=== PATIENT | female | born 1990 | race American Indian/Alaskan Native ===

== ENCOUNTER 2017-08-24 06:00 | Observation (INO) | payer MEDICAID ==
[2017-08-24] MEDS ORDERED: ceFAZolin 2 GM in Premix Bag 1 BAG IV ONE (09:41)
[2017-08-24] MEDS ORDERED: Sodium Chloride 0.9% 10 ML Syringe FLUSH PRN (09:41)
[2017-08-24] MEDS ORDERED: Ondansetron 4 MG/2 ML SDV IVPUSH PRN (09:41)
[2017-08-24] MEDS ORDERED: Citric Acid/Sodium Citrate Solution 30 ML Cup PO ONE (09:41)
[2017-08-24] MEDS ORDERED: Lactated Ringers 1,000 ML IV SCH ×2 (09:45)
== END 2017-08-24 11:52 | disposition home or self-care (01) ==
LOC: DL.OB 06:00
PROVIDERS: ADMIT Family Medicine; ATTEND Family Medicine
DX: O82 Encounter for cesarean delivery without indication (principal); Z3A.36 36 weeks gestation of pregnancy; Z98.891 History of uterine scar from previous surgery; Z87.59 Personal history of other complications of pregnancy, childbirth and the puerperium; Z53.9 Procedure and treatment not carried out, unspecified reason
CPT/HCPCS: 36415; 59025; 85025; 86850; 86900; 86901; J7120

== ENCOUNTER 2017-08-28 05:54 | Inpatient (IN) | payer MEDICAID ==
[2017-08-28] MEDS: Lactated Ringers 1,000 ML IV SCH ×3 (06:15→16:05)
[2017-08-28] MEDS ORDERED: Oxytocin/Normal Saline 60 UNIT/1,000 ML BAG ONE (07:03)
[2017-08-28] MEDS ORDERED: ceFAZolin 2 GM in Premix Bag 1 BAG IV ONE (07:23)
[2017-08-28] MEDS ORDERED: Citric Acid/Sodium Citrate Solution 30 ML Cup PO ONE (07:23)
[2017-08-28] MEDS ORDERED: Sodium Chloride 0.9% 10 ML Syringe FLUSH PRN (07:23)
[2017-08-28] MEDS ORDERED: Lactated Ringers 1,000 ML IV SCH ×3 (07:30→09:15)
--- NOTE | 2017-08-28 07:31 | PCM.HPR ---
H & P Addendum review - H & P Addendum Review Date of Original H & P: 08/22/17 Date Reviewed: 08/28/17 Time Reviewed: 07:30 Patient was Examined: No Changes
[2017-08-28] MEDS ORDERED: Oxytocin/Normal Saline 30 UNIT/500 ML BAG IV SCH (09:00)
[2017-08-28] MEDS ORDERED: diphenhydrAMINE 50 MG/ML SDV IVPUSH PRN (09:03)
[2017-08-28] MEDS ORDERED: Acetaminophen/oxyCODONE 325-5 MG Tab PO PRN (09:03)
[2017-08-28] MEDS ORDERED: Naloxone 2 MG/2 ML Syringe IVPUSH PRN (09:03)
[2017-08-28] MEDS ORDERED: Carboprost Tromethamine 250 MCG/1 ML Amp IM ONE (09:03)
[2017-08-28] MEDS ORDERED: ePHEDrine 50 MG/ML SDV IVPUSH PRN (09:03)
[2017-08-28] MEDS ORDERED: Methylergonovine 0.2 MG/1 ML Amp IM PRN (09:03)
[2017-08-28] MEDS ORDERED: Misoprostol 400 MCG (4 X 100 MCG TAB) RECTAL PRN (09:03)
[2017-08-28] MEDS ORDERED: Acetaminophen 325 MG Tab PO PRN (09:03)
--- NOTE | 2017-08-28 09:03 | PCM.DEL ---
L & D Note - General Info Date of Service: 08/28/17 Mother's Due Date: 08/29/17 - Delivery Note Delivery Outcome: Livebirth Infant Delivery Method: Repeat Delivery Mode: Vacuum Extraction Presentation: Vertex Nuchal Cord: None Anesthesia Type: Spinal Amniotic Fluid Description: Clear Placenta: Intact, Manual Removal Cord: 3 Vessels Estimated Blood Loss: 700 Resuscitation Needed: No [place]: Bulb Syringe Provider: Wendy Crouch Score 1 min: 9 Score 5 min: 9 Delivery Comments (Free Text/Narrative):: Please see procedure note - Patient Data Vitals - Most Recent: Last Vital Signs Temp 36.6 C 08/28/17 06:00 Pulse 92 08/28/17 06:00 Resp 16 08/28/17 06:00 BP 120/80 08/28/17 06:00 Pulse Ox 98 08/28/17 06:00 Weight - Most Recent: 105.233 kg I&O - Last 24 Hours: Intake & Output 08/27/17 08/28/17 08/28/17 22:59 06:59 14:59 Intake Total 50 Balance 50 Lab Results Last 24 Hours: Laboratory Results - last 24 hr 08/28/17 08/28/17 Range/Units 06:05 06:05 WBC 11.0 H (5.0-10.0) 10^3/uL RBC 3.81 L (4.2-5.4) 10^6/uL Hgb 11.3 L D (12.0-16.0) g/dL Hct 34.3 L (37.0-47.0) % MCV 90.0 (80-100) fL MCH 29.7 (27.0-34.0) pg MCHC 32.9 L (33.0-35.0) g/dL Plt Count 192 (150-450) 10^3/uL Blood Type O POSITIVE Gel Antibody Screen Negative Med Orders - Current: Current Medications Lactated Ringer's (Ringers, Lactated) 1,000 mls @ 125 mls/hr IV ASDIRECTED YOGI Last Admin: 08/28/17 06:47 Dose: 125 mls/hr Lactated Ringer's (Ringers, Lactated) 1,000 mls @ 125 mls/hr IV ASDIRECTED YOGI Lactated Ringer's (Ringers, Lactated) 1,000 mls @ 500 mls/hr IV .BOLUS YOGI Sodium Chloride (Saline Flush) 10 ml FLUSH ASDIRECTED PRN PRN Reason: Keep Vein Open Discontinued Medications Citric Acid/Sodium Citrate (Bicitra Solution) 30 ml PO ONETIME ONE Stop: 08/28/17 07:24 Last Admin: 08/28/17 07:41 Dose: 30 ml Oxytocin/Sodium Chloride (Pitocin In Ns 30 Unit/500 Ml) Confirm Administered Dose 60 unit in 1,000 mls @ as directed .ROUTE .STK-MED ONE Stop: 08/28/17 07:04 Cefazolin Sodium/Dextrose 2 gm (/ Premix) 50 mls @ 100 mls/hr IV ONETIME ONE Stop: 08/28/17 07:52 Last Admin: 08/28/17 07:45 Dose: 100 mls/hr - Problem List & Annotations (1) Status post delivery SNOMED Code(s): 615226690 Code(s): Z98.891 - HISTORY OF UTERINE SCAR FROM PREVIOUS SURGERY Status: Acute Current Visit: Yes (2) History of pre-eclampsia SNOMED Code(s): 649849309838517 Code(s): Z87.59 - PERSONAL HISTORY OF COMP OF PREG, CHLDBRTH AND THE PUERP Status: Acute Current Visit: Yes (3) Rubella non-immune status, antepartum SNOMED Code(s): 275927294 Code(s): O99.89 - OTH DISEASES AND CONDITIONS COMPL PREG/CHLDBRTH; Z28.3 - UNDERIMMUNIZATION STATUS Status: Acute Current Visit: Yes (4) STD (sexually transmitted disease) complicating , delivered SNOMED Code(s): 56403301 Code(s): O98.32 - OTH INFECTIONS W SEXL MODE OF TRANSMISS COMP CHILDBIRTH Status: Acute Current Visit: Yes (5) History of delivery SNOMED Code(s): 862897709 Code(s): Z98.891 - HISTORY OF UTERINE SCAR FROM PREVIOUS SURGERY Status: Acute Current Visit: Yes - Problem List Review Problem List Initiated/Reviewed/Updated: Yes - My Orders Last 24 Hours: My Active Orders 08/28/17 06:00 Lactated Ringers [Ringers, Lactated] 1,000 ml IV ASDIRECTED 08/28/17 07:23 Patient Status [ADT] Routine Notify Provider Vital Signs OB [RC] ASDIRECTED Peripheral IV Care [RC] . DIRECTED Procedure Site Prep Instruct [RC] ASDIRECTED RT Incentive Spirometry [RC] ASDIRECTED Vital Signs [RC] PER UNIT ROUTINE Sodium Chloride 0.9% [Saline Flush] 10 ml FLUSH ASDIRECTED PRN Peripheral IV Insertion Adult [OM.PC] Routine Schedule Procedure [COMM] Per Unit Routine Resuscitation Status Routine 08/28/17 07:30 Lactated Ringers [Ringers, Lactated] 1,000 ml IV .BOLUS Lactated Ringers [Ringers, Lactated] 1,000 ml IV ASDIRECTED 08/28/17 Lunch Nothing Per Oral Diet [DIET] - Assessment Assessment:: 27-year-old, now , status post rLTCS @ 39w6d - Plan Plan:: 1. Initiate routine postoperative cares 2. Plans to breast and bottle feed 3. Repeat CBC tomorrow AM 4. Anticipate discharge 08/31/17 Wendy Crouch MD
--- NOTE | 2017-08-28 09:03 | PCM.PRNOTE ---
- Free Text/Narrative Note: Section Operative Report Date of Surgery: 08/28/2017 Surgeon: Wendy Crouch MD Multimedia Authoring Specialist: Jordon Arreola MD Pre-Operative Diagnosis: History of section, declined Post-Operative Diagnosis: Same Procedure Performed: Repeat low transverse section Anesthesia: Spinal EBL: 700 mL IVF: 1900 mL Drains: Berrios catheter with 40 mL of urine output (patient urinated immediately prior to surgery) Specimens: None Complications: None apparent Findings: Normal uterus, tubes, and ovaries. Indication and Consent: The patient presented to floor today for scheduled at term due to hx of prior and desire for elective repeat . The patient understood that the risks of section include, but are not limited to, visceral or vascular injury, infection, blood loss and need for blood transfusion, prolonged hospitalization, and reoperation. The patient again stated understanding and desired to proceed. All questions were answered. Procedure in Detail: The patient was taken to the operating room where spinal anesthesia was placed and found to be adequate. 2 grams of cefazolin (Ancef) were given for infection prophylaxis. She was then prepped and draped in routine fashion in dorsal supine position with a left morrissey tilt. Berrios catheter and pneumoboots were placed. A Pfannenstiel skin incision was made with a scalpel. The incision was carried down to the fascia sharply. The fascia was incised and extended laterally. The superior aspect of the fascia was grasped with Weston clamps; the underlying rectus muscle and pyramidalis was dissected off with sharp and blunt technique. In a similar fashion, the inferior aspect of the fascia was elevated with Weston clamps and the rectus muscle was dissected off. Hemostasis was achieved with the Bovie. The rectus musculature was in the midline down to the level of the pubic symphysis. Pre-peritoneal fatty tissue was bluntly dissected to expose the peritoneum. The peritoneum was found to be free of adherent bowel or bladder tissue and entered bluntly. The peritoneal opening was then extended superiorly and inferiorly to the bladder reflection with good visualization of the bladder. The Henry retractor was inserted. Intraabdominal survey revealed scant, clear peritoneal fluid and thinned-out lower uterine segment. The vesicouterine peritoneum was opened with a pickup and mets, and the bladder flap was developed. The bladder blade was repositioned to keep the bladder out of the operative field. The lower uterine segment was incised with a scalpel. The amniotic sac was ruptured with an Allis clamp and clear fluid was noted. The uterine incision was extended bluntly with lateral and upward traction. The fetus was in cephalic position. The head was elevated out of the maternal pelvis with special attention paid to avoid using the uterine incision as a fulcrum. A Kiwi soft cup vacuum was used to remove the head from the uterus. One gentle pull was needed to deliver the head. Gentle fundal pressure was applied once the head was brought into the incision. The was delivered with minimal difficulty. Bulb suctioning of the infant's nose and mouth was not performed on the operative field. Cord blood was collected.The cord was clamped and cut in standard fashion, and the infant was handed over to the awaiting nursery staff. IV oxytocin was initiated to facilitate uterine contractions. The placenta was delivered intact with manual message of the uterine fundus along with gentle cord traction. The uterus was then exteriorized. The inside of the uterus was gently wiped with a lap sponge to assure complete removal of remaining products of conception. The uterine incision was closed with 0 - Vicryl suture in a running locked fashion. A second imbricating layer of 0- Monocryl was also placed. The incision was inspected and hemostasis was achieved. The ovaries and tubes were visualized and found to be normal. The blood clots and fluid were wiped out of the abdomen and pelvis with moist laparotomy sponges. The uterine incision was re-inspected along with all other incised surfaces and good hemostasis was confirmed. The Henry retractor was removed. The incision was re-inspected and found to be hemostatic. Peritoneum was close with 2-0 Vicryl. The fascia was then closed with 2-0 looped PDS suture with care not to include any underlying abdominal contents. The sub-cutaneous layer was reapproximated with suture. The skin was closed with 4-0 Vicryl suture on a Jose needle in a subcuticular fashion. Sponge and instrument counts were reported as correct times two. Patient tolerated procedure well and was taken to PACU in stable condition. Wendy Crouch MD
[2017-08-28] MEDS: Ondansetron 4 MG/2 ML SDV IV PRN ×2 (12:08→17:02)
[2017-08-28] MEDS ORDERED: Promethazine 25 MG/ML SDV IM PRN (12:51)
[2017-08-28] MEDS: Ketorolac 30 MG/ML SDV IVPUSH SCH ×2 (14:10→20:06)
[2017-08-28] MEDS ORDERED: Ketorolac 30 MG/ML SDV IVPUSH ONE (14:15)
[2017-08-28] MEDS ORDERED: Dexamethasone 4 MG/ML SDV IV ONE (14:15)
[2017-08-28] MEDS ORDERED: Ondansetron 4 MG/2 ML SDV IV ONE (14:15)
[2017-08-28] MEDS ORDERED: Lactated Ringers 1,000 ML IV ONE (14:15)
[2017-08-28] MEDS ORDERED: Morphine PF 1 MG/ML Amp ONE (14:15)
[2017-08-28] MEDS ORDERED: ePHEDrine 50 MG/ML SDV IV ONE (14:15)
[2017-08-28] MEDS ORDERED: Calcium Carbonate 500 MG Tab.Chew PO PRN (15:12)
[2017-08-29] MEDS: Lactated Ringers 1,000 ML IV SCH (00:07)
[2017-08-29] MEDS: Ketorolac 30 MG/ML SDV IVPUSH SCH (02:07)
[2017-08-29] MEDS: Simethicone 80 MG Tab.Chew PO PRN ×3 (08:14→17:53)
[2017-08-29] MEDS: Docusate Sodium 100 MG Cap PO PRN ×2 (08:14→21:29)
[2017-08-29] MEDS: Prenatal Multivitamin with Calcium/Folic Acid/Iron Tab PO SCH (08:31)
[2017-08-29] MEDS: Ibuprofen 800 MG Tab PO PRN ×2 (09:58→17:53)
[2017-08-29] MEDS: Acetaminophen/oxyCODONE 325-5 MG Tab PO PRN ×3 (12:16→21:29)
--- NOTE | 2017-08-29 12:17 | PCM.PNPP ---
- General Info Date of Service: 08/29/17 Subjective Update: 27-year-old POD#1 status post repeat section. Patient had some significant heartburn after surgery which improved with Tums. Her baugh is still in place. She has not gotten out of bed much. She was eating breakfast when I arrived in the room, which is the first thing she has eaten except for crackers and water. She has had some intermittent mild dizziness. No fever or chills. No headaches. Functional Status: Reports: Pain Controlled. Denies: New Symptoms - Review of Systems General: Reports: No Symptoms HEENT: Reports: No Symptoms Pulmonary: Reports: No Symptoms Cardiovascular: Reports: No Symptoms Gastrointestinal: Reports: No Symptoms Genitourinary: Reports: No Symptoms Musculoskeletal: Reports: No Symptoms Skin: Reports: No Symptoms Neurological: Reports: No Symptoms Psychiatric: Reports: No Symptoms - General Info Date of Service: 08/29/17 - Patient Data Vital Signs - Most Recent: Last Vital Signs Temp 36.2 C 08/29/17 11:49 Pulse 65 08/29/17 11:49 Resp 16 08/29/17 11:49 BP 107/64 08/29/17 11:49 Pulse Ox 98 08/29/17 11:49 Weight - Most Recent: 105.233 kg I&O - Last 24 Hours: Intake & Output 08/28/17 08/29/17 08/29/17 22:59 06:59 14:59 Intake Total 78 Output Total 425 700 250 Balance -347 700 -250 Lab Results - Last 24 Hours: Laboratory Results - last 24 hr 08/29/17 Range/Units 06:12 WBC 10.2 H (5.0-10.0) 10^3/uL RBC 2.86 L (4.2-5.4) 10^6/uL Hgb 8.3 L D (12.0-16.0) g/dL Hct 25.7 L (37.0-47.0) % MCV 89.9 (80-100) fL MCH 29.0 (27.0-34.0) pg MCHC 32.3 L (33.0-35.0) g/dL Plt Count 180 (150-450) 10^3/uL Med Orders - Current: Current Medications Acetaminophen (Tylenol) 650 mg PO Q6H PRN PRN Reason: mild pain or fever Calcium Carbonate/Glycine (Tums) 500 mg PO Q2H PRN PRN Reason: Heartburn Last Admin: 08/28/17 16:06 Dose: 500 mg Diphenhydramine HCl (Benadryl) 25 mg IVPUSH Q6H PRN PRN Reason: Itching or Nausea Docusate Sodium (Colace) 100 mg PO Q12H PRN PRN Reason: Constipation Last Admin: 08/29/17 08:14 Dose: 100 mg Ephedrine Sulfate (Ephedrine Sulfate) 5 mg IVPUSH SEECOMMENT PRN PRN Reason: Other Ferrous Sulfate (Ferrous Sulfate) 325 mg PO BIDMEALS YOGI Lactated Ringer's (Ringers, Lactated) 1,000 mls @ 125 mls/hr IV ASDIRECTED YOGI Last Admin: 08/29/17 00:07 Dose: 125 mls/hr Lactated Ringer's (Ringers, Lactated) 1,000 mls @ 125 mls/hr IV ASDIRECTED YOGI Lactated Ringer's (Ringers, Lactated) 1,000 mls @ 500 mls/hr IV .BOLUS YOGI Oxytocin/Sodium Chloride (Pitocin In Ns 30 Unit/500 Ml) 30 unit in 500 mls @ 2 mls/hr IV TITRATE YOGI; 2 MUNITS/MIN PRN Reason: Protocol Last Titration: 08/28/17 11:25 Dose: 0 mls/hr Lactated Ringer's (Ringers, Lactated) 1,000 mls @ 125 mls/hr IV ASDIRECTED YOGI Ibuprofen (Motrin) 800 mg PO Q8H PRN PRN Reason: mild pain or fever Last Admin: 08/29/17 09:58 Dose: 800 mg Methylergonovine Maleate (Methergine) 0.2 mg IM ONETIME PRN PRN Reason: Excessive Vaginal Bleeding Misoprostol (Cytotec) 800 mcg RECTAL ASDIRECTED PRN PRN Reason: Excessive bleeding Naloxone HCl (Narcan) 0.1 mg IVPUSH SEECOMMENT PRN PRN Reason: Respiratory Depression Ondansetron HCl (Zofran) 4 mg IV Q4H PRN PRN Reason: Nausea/Vomiting Last Admin: 08/28/17 17:02 Dose: 4 mg Oxycodone/Acetaminophen (Percocet 325-5 Mg) 1 tab PO Q4H PRN PRN Reason: Pain (moderate 4-6) Last Admin: 08/29/17 08:14 Dose: 1 tab Oxycodone/Acetaminophen (Percocet 325-5 Mg) 2 tab PO Q4H PRN PRN Reason: Pain (moderate 4-6) Prenat Multivit/[place]/Iron/Folic Ac ( Plus Iron) 1 each PO WITHBREAKFAST YOGI Last Admin: 08/29/17 08:31 Dose: 1 each Promethazine HCl (Phenergan) 12.5 mg IM ONETIME PRN PRN Reason: Nausea Simethicone (Simethicone) 80 mg PO Q4H PRN PRN Reason: Gas Last Admin: 08/29/17 08:14 Dose: 80 mg Sodium Chloride (Saline Flush) 10 ml FLUSH ASDIRECTED PRN PRN Reason: Keep Vein Open Discontinued Medications Carboprost Tromethamine (Hemabate Ds) 250 mcg IM ONETIME ONE Stop: 08/28/17 09:04 Last Admin: 08/28/17 11:41 Dose: Not Given Citric Acid/Sodium Citrate (Bicitra Solution) 30 ml PO ONETIME ONE Stop: 08/28/17 07:24 Last Admin: 08/28/17 07:41 Dose: 30 ml Dexamethasone (Dexamethasone) 8 mg IV .STK-MED ONE Stop: 08/28/17 14:16 Ephedrine Sulfate (Ephedrine Sulfate) 45 mg IV .STK-MED ONE Stop: 08/28/17 14:16 Oxytocin/Sodium Chloride (Pitocin In Ns 30 Unit/500 Ml) Confirm Administered Dose 60 unit in 1,000 mls @ as directed .ROUTE .STK-MED ONE Stop: 08/28/17 07:04 Cefazolin Sodium/Dextrose 2 gm (/ Premix) 50 mls @ 100 mls/hr IV ONETIME ONE Stop: 08/28/17 07:52 Last Admin: 08/28/17 07:45 Dose: 100 mls/hr Lactated Ringer's (Ringers, Lactated) 1,000 mls @ as directed IV .STK-MED ONE Stop: 08/28/17 14:16 Ketorolac Tromethamine (Toradol) 15 mg IVPUSH Q6H YOGI Stop: 08/29/17 02:01 Last Admin: 08/29/17 02:07 Dose: 15 mg Ketorolac Tromethamine (Toradol) 30 mg IVPUSH .STK-MED ONE Stop: 08/28/17 14:16 Morphine Sulfate (Duramorph Pf) 0.2 mg .XX .STK-MED ONE Stop: 08/28/17 14:16 Ondansetron HCl (Zofran) 4 mg IV .STK-MED ONE Stop: 08/28/17 14:16 - Infant Interaction Disposition, : to Nursery Feeding: Bottle Fed Support Person: - Recovery Exam Fundal Tone: Firm Fundal Level: 2 Fingerbreadths Below Umbilicus Fundal Placement: Midline Lochia Amount: Small Lochia Color: Rubra/Red Perineum Description: Intact, Minimal Bruising/Swelling Bladder Status: Indwelling Catheter in Place Urinary Elimination: Indwelling Catheter - Exam General: Alert, Oriented Lungs: Clear to Auscultation Cardiovascular: Regular Rate, Regular Rhythm, No Murmurs Extremities: No Pedal Edema Skin: Warm, Dry, Intact Wound/Incisions: Dressing Dry and Intact - Problem List & Annotations (1) Status post delivery SNOMED Code(s): 928892643 Code(s): Z98.891 - HISTORY OF UTERINE SCAR FROM PREVIOUS SURGERY Status: Acute Current Visit: Yes (2) History of pre-eclampsia SNOMED Code(s): 791660251635715 Code(s): Z87.59 - PERSONAL HISTORY OF COMP OF PREG, CHLDBRTH AND THE PUERP Status: Acute Current Visit: Yes (3) Rubella non-immune status, antepartum SNOMED Code(s): 837249466 Code(s): O99.89 - OTH DISEASES AND CONDITIONS COMPL PREG/CHLDBRTH; Z28.3 - UNDERIMMUNIZATION STATUS Status: Acute Current Visit: Yes (4) STD (sexually transmitted disease) complicating , delivered SNOMED Code(s): 73587348 Code(s): O98.32 - OTH INFECTIONS W SEXL MODE OF TRANSMISS COMP CHILDBIRTH Status: Acute Current Visit: Yes (5) History of delivery SNOMED Code(s): 390779580 Code(s): Z98.891 - HISTORY OF UTERINE SCAR FROM PREVIOUS SURGERY Status: Acute Current Visit: Yes - Problem List Review Problem List Initiated/Reviewed/Updated: Yes - My Orders Last 24 Hours: My Active Orders 08/28/17 15:12 Calcium Carbonate [Tums] 500 mg PO Q2H PRN 08/28/17 Dinner Regular Diet [DIET] 08/29/17 09:00 Vit with Ca/FA/Iron [ Plus Iron] 1 each PO WITHBREAKFAST 08/29/17 10:00 Ibuprofen [Motrin] 800 mg PO Q8H PRN 08/29/17 18:00 Ferrous Sulfate 325 mg PO BIDMEALS - Assessment Assessment:: 27-year-old, now , POD#1 status post rLTCS @ 39w6d - Plan Plan:: 1. Continue routine postoperative cares 2. Bottle feeding 3. Hemoglobin decreased to 8.3. Will start oral iron BID. 4. Anticipate discharge 08/31/17 Wendy Crouch MD
[2017-08-29] MEDS: Ferrous Sulfate 325 MG Tab PO SCH (17:23)
[2017-08-30] MEDS: Simethicone 80 MG Tab.Chew PO PRN ×2 (01:34→20:20)
[2017-08-30] MEDS: Ibuprofen 800 MG Tab PO PRN ×3 (01:35→18:09)
[2017-08-30] MEDS: Acetaminophen/oxyCODONE 325-5 MG Tab PO PRN ×6 (01:35→21:57)
[2017-08-30] MEDS: Prenatal Multivitamin with Calcium/Folic Acid/Iron Tab PO SCH (09:41)
[2017-08-30] MEDS: Docusate Sodium 100 MG Cap PO PRN ×2 (09:42→20:21)
[2017-08-30] MEDS: Ferrous Sulfate 325 MG Tab PO SCH ×2 (09:42→18:09)
--- NOTE | 2017-08-30 10:26 | PCM.PNPP ---
- General Info Date of Service: 08/30/17 Subjective Update: 27-year-old POD#2 status post repeat section. Patient had some significant heartburn after surgery which improved with Tums. Berrios has been removed, and she is voiding without difficulty. She is passing gas. Dizziness has improved. She is tolerating a general diet. No fever or chills. No headaches. Functional Status: Reports: Pain Controlled, Tolerating Diet, Ambulating, Urinating. Denies: New Symptoms - Review of Systems General: Reports: No Symptoms HEENT: Reports: No Symptoms Pulmonary: Reports: No Symptoms Cardiovascular: Reports: No Symptoms Gastrointestinal: Reports: No Symptoms Genitourinary: Reports: No Symptoms Musculoskeletal: Reports: No Symptoms Skin: Reports: No Symptoms - Patient Data Vital Signs - Most Recent: Last Vital Signs Temp 36.9 C 08/30/17 01:45 Pulse 70 08/30/17 01:45 Resp 16 08/30/17 01:45 BP 113/74 08/30/17 01:45 Pulse Ox 99 08/30/17 01:45 Weight - Most Recent: 105.233 kg I&O - Last 24 Hours: Intake & Output 08/29/17 08/30/17 08/30/17 22:59 06:59 14:59 Output Total 400 Balance -400 Med Orders - Current: Current Medications Acetaminophen (Tylenol) 650 mg PO Q6H PRN PRN Reason: mild pain or fever Calcium Carbonate/Glycine (Tums) 500 mg PO Q2H PRN PRN Reason: Heartburn Last Admin: 08/28/17 16:06 Dose: 500 mg Diphenhydramine HCl (Benadryl) 25 mg IVPUSH Q6H PRN PRN Reason: Itching or Nausea Docusate Sodium (Colace) 100 mg PO Q12H PRN PRN Reason: Constipation Last Admin: 08/30/17 09:42 Dose: 100 mg Ephedrine Sulfate (Ephedrine Sulfate) 5 mg IVPUSH SEECOMMENT PRN PRN Reason: Other Ferrous Sulfate (Ferrous Sulfate) 325 mg PO BIDMEALS [facility] Last Admin: 08/30/17 09:42 Dose: 325 mg Lactated Ringer's (Ringers, Lactated) 1,000 mls @ 125 mls/hr IV ASDIRECTED [facility] Last Admin: 08/29/17 00:07 Dose: 125 mls/hr Lactated Ringer's (Ringers, Lactated) 1,000 mls @ 125 mls/hr IV ASDIRECTED YOGI Lactated Ringer's (Ringers, Lactated) 1,000 mls @ 500 mls/hr IV .BOLUS YOGI Oxytocin/Sodium Chloride (Pitocin In Ns 30 Unit/500 Ml) 30 unit in 500 mls @ 2 mls/hr IV TITRATE YOGI; 2 MUNITS/MIN PRN Reason: Protocol Last Titration: 08/28/17 11:25 Dose: 0 mls/hr Lactated Ringer's (Ringers, Lactated) 1,000 mls @ 125 mls/hr IV ASDIRECTED YOGI Ibuprofen (Motrin) 800 mg PO Q8H PRN PRN Reason: mild pain or fever Last Admin: 08/30/17 09:42 Dose: 800 mg Methylergonovine Maleate (Methergine) 0.2 mg IM ONETIME PRN PRN Reason: Excessive Vaginal Bleeding Misoprostol (Cytotec) 800 mcg RECTAL ASDIRECTED PRN PRN Reason: Excessive bleeding Naloxone HCl (Narcan) 0.1 mg IVPUSH SEECOMMENT PRN PRN Reason: Respiratory Depression Ondansetron HCl (Zofran) 4 mg IV Q4H PRN PRN Reason: Nausea/Vomiting Last Admin: 08/28/17 17:02 Dose: 4 mg Oxycodone/Acetaminophen (Percocet 325-5 Mg) 1 tab PO Q4H PRN PRN Reason: Pain (moderate 4-6) Last Admin: 08/29/17 08:14 Dose: 1 tab Oxycodone/Acetaminophen (Percocet 325-5 Mg) 2 tab PO Q4H PRN PRN Reason: Pain (moderate 4-6) Last Admin: 08/30/17 09:42 Dose: 2 tab Prenat Multivit/[place]/Iron/Folic Ac ( Plus Iron) 1 each PO WITHBREAKFAST [facility] Last Admin: 08/30/17 09:41 Dose: 1 each Promethazine HCl (Phenergan) 12.5 mg IM ONETIME PRN PRN Reason: Nausea Simethicone (Simethicone) 80 mg PO Q4H PRN PRN Reason: Gas Last Admin: 08/30/17 01:34 Dose: 80 mg Sodium Chloride (Saline Flush) 10 ml FLUSH ASDIRECTED PRN PRN Reason: Keep Vein Open Discontinued Medications Carboprost Tromethamine (Hemabate Ds) 250 mcg IM ONETIME ONE Stop: 08/28/17 09:04 Last Admin: 08/28/17 11:41 Dose: Not Given Citric Acid/Sodium Citrate (Bicitra Solution) 30 ml PO ONETIME ONE Stop: 08/28/17 07:24 Last Admin: 08/28/17 07:41 Dose: 30 ml Dexamethasone (Dexamethasone) 8 mg IV .STK-MED ONE Stop: 08/28/17 14:16 Ephedrine Sulfate (Ephedrine Sulfate) 45 mg IV .STK-MED ONE Stop: 08/28/17 14:16 Oxytocin/Sodium Chloride (Pitocin In Ns 30 Unit/500 Ml) Confirm Administered Dose 60 unit in 1,000 mls @ as directed .ROUTE .STK-MED ONE Stop: 08/28/17 07:04 Cefazolin Sodium/Dextrose 2 gm (/ Premix) 50 mls @ 100 mls/hr IV ONETIME ONE Stop: 08/28/17 07:52 Last Admin: 08/28/17 07:45 Dose: 100 mls/hr Lactated Ringer's (Ringers, Lactated) 1,000 mls @ as directed IV .STK-MED ONE Stop: 08/28/17 14:16 Ketorolac Tromethamine (Toradol) 15 mg IVPUSH Q6H YOGI Stop: 08/29/17 02:01 Last Admin: 08/29/17 02:07 Dose: 15 mg Ketorolac Tromethamine (Toradol) 30 mg IVPUSH .STK-MED ONE Stop: 08/28/17 14:16 Morphine Sulfate (Duramorph Pf) 0.2 mg .XX .STK-MED ONE Stop: 08/28/17 14:16 Ondansetron HCl (Zofran) 4 mg IV .STK-MED ONE Stop: 08/28/17 14:16 - Infant Interaction Disposition, : [place] in Room with Family Interaction: Holding Infant Feeding: Bottle Fed Support Person: - Recovery Exam Fundal Tone: Firm Fundal Level: Unable to Assess Fundal Placement: Midline Lochia Amount: Moderate Lochia Color: Rubra/Red Perineum Description: Intact, Minimal Bruising/Swelling Bladder Status: Voiding Urinary Elimination: Indwelling Catheter - Exam General: Alert, Oriented Lungs: Clear to Auscultation, Normal Respiratory Effort Cardiovascular: Regular Rate, Regular Rhythm, No Murmurs Extremities: Pedal Edema (Trace bilaterally) Skin: Warm, Dry, Intact Wound/Incisions: Healing Well, No Drainage. No: Erythema - Problem List & Annotations (1) Status post delivery SNOMED Code(s): 616582218 Code(s): Z98.891 - HISTORY OF UTERINE SCAR FROM PREVIOUS SURGERY Status: Acute Current Visit: Yes (2) History of pre-eclampsia SNOMED Code(s): 239179964551186 Code(s): Z87.59 - PERSONAL HISTORY OF COMP OF PREG, CHLDBRTH AND THE PUERP Status: Acute Current Visit: Yes (3) Rubella non-immune status, antepartum SNOMED Code(s): 622544338 Code(s): O99.89 - OTH DISEASES AND CONDITIONS COMPL PREG/CHLDBRTH; Z28.3 - UNDERIMMUNIZATION STATUS Status: Acute Current Visit: Yes (4) STD (sexually transmitted disease) complicating , delivered SNOMED Code(s): 84070555 Code(s): O98.32 - OTH INFECTIONS W SEXL MODE OF TRANSMISS COMP CHILDBIRTH Status: Acute Current Visit: Yes (5) History of delivery SNOMED Code(s): 336679799 Code(s): Z98.891 - HISTORY OF UTERINE SCAR FROM PREVIOUS SURGERY Status: Acute Current Visit: Yes (6) Acute blood loss anemia SNOMED Code(s): 681359874 Code(s): D62 - ACUTE POSTHEMORRHAGIC ANEMIA Status: Acute Current Visit: Yes - Problem List Review Problem List Initiated/Reviewed/Updated: Yes - My Orders Last 24 Hours: My Active Orders 08/29/17 10:00 Ibuprofen [Motrin] 800 mg PO Q8H PRN 08/29/17 18:00 Ferrous Sulfate 325 mg PO BIDMEALS - Assessment Assessment:: 27-year-old, now , POD#2 status post rLTCS @ 39w6d - Plan Plan:: 1. Continue routine postoperative cares 2. Bottle feeding 3. Continue oral iron BID 4. Anticipate discharge 08/31/17 Wendy Crouch MD
[2017-08-31] MEDS: Ibuprofen 800 MG Tab PO PRN ×2 (01:35→10:02)
[2017-08-31] MEDS: Acetaminophen/oxyCODONE 325-5 MG Tab PO PRN ×3 (01:35→12:27)
[2017-08-31] MEDS: Prenatal Multivitamin with Calcium/Folic Acid/Iron Tab PO SCH (10:01)
[2017-08-31] MEDS: Ferrous Sulfate 325 MG Tab PO SCH (10:01)
[2017-08-31] MEDS: Simethicone 80 MG Tab.Chew PO PRN (10:03)
[2017-08-31] MEDS: Docusate Sodium 100 MG Cap PO PRN (10:03)
--- NOTE | 2017-08-31 12:43 | PCM.DCSUM1 ---
Discharge Summary - Hospital Course Free Text/Narrative:: 27-year-old POD#3 status post rLTCS at 39w6d - Discharge Data Discharge Date: 08/31/17 Discharge Disposition: Home, Self-Care 01 Condition: Good - Discharge Diagnosis/Problem(s) (1) Status post delivery SNOMED Code(s): 436712438 ICD Code: Z98.891 - HISTORY OF UTERINE SCAR FROM PREVIOUS SURGERY Status: Acute Current Visit: Yes (2) History of pre-eclampsia SNOMED Code(s): 887429426805138 ICD Code: Z87.59 - PERSONAL HISTORY OF COMP OF PREG, CHLDBRTH AND THE PUERP Status: Acute Current Visit: Yes (3) Rubella non-immune status, antepartum SNOMED Code(s): 664536060 ICD Code: O99.89 - OTH DISEASES AND CONDITIONS COMPL PREG/CHLDBRTH; Z28.3 - UNDERIMMUNIZATION STATUS Status: Acute Current Visit: Yes (4) STD (sexually transmitted disease) complicating , delivered SNOMED Code(s): 33241129 ICD Code: O98.32 - OTH INFECTIONS W SEXL MODE OF TRANSMISS COMP CHILDBIRTH Status: Acute Current Visit: Yes (5) History of delivery SNOMED Code(s): 117175485 ICD Code: Z98.891 - HISTORY OF UTERINE SCAR FROM PREVIOUS SURGERY Status: Acute Current Visit: Yes (6) Acute blood loss anemia SNOMED Code(s): 966149504 ICD Code: D62 - ACUTE POSTHEMORRHAGIC ANEMIA Status: Acute Current Visit : Yes - Patient Summary/Data Operative Procedure(s) Performed: Repeat low transverse section Complications: None Consults: None Labs Pending at D/C: None Recommended Follow-up Testing/Procedures: None Planned Operative Procedure(s) after DC: None Hospital Course: Unremarkable. (Please see subjective section) - Patient Instructions Diet: Usual Diet as Tolerated Activity: As Tolerated, No Lifting Over 20 Pounds Driving: Do Not Drive (while taking pain medications) Showering/Bathing: May Shower Wound/Incision Care: Keep Operative Site/Wound Site Clean and Dry Notify Provider of: Fever, Increased Pain, Swelling and Redness, Drainage, Nausea and/or Vomiting - Discharge Plan Home Medications: Home Meds Albuterol [IJD: Albuterol HFA] 90 mcg INH Q4HR PRN 08/24/17 [History] Albuterol [Proventil HFA] 2 puff INH Q4HR PRN 08/24/17 [History] Montelukast Sodium [Singulair] 10 mg PO DAILY 08/24/17 [History] PNV95/Ferrous Fumarate/FA [ Tablet] 1 tab PO DAILY 08/24/17 [History] Acetaminophen [Tylenol] 650 mg PO Q6H PRN tablet 08/31/17 [Rx] Calcium Carbonate [Tums] 500 mg PO Q2H PRN tab.chew 08/31/17 [Rx] Docusate Sodium [Colace] 100 mg PO Q12H PRN cap 08/31/17 [Rx] Ferrous Sulfate 325 mg PO BIDMEALS tablet 08/31/17 [Rx] Ibuprofen [IJD: Ibuprofen] 800 mg PO Q8H PRN tablet 08/31/17 [Rx] Referrals: Wendy Crouch MD [Primary Care Provider] - (6-8 weeks for visit) - Discharge Summary/Plan Comment DC Time >30 min.: No Discharge Summary/Plan Comment: Patient discharged home today. Her baby is staying another day for hyperbilirubinemia so she will be rooming in with him. No concerns per patient or nursing. Reasons to return for evaluation or present to the ED were reviewed with the patient, and all questions were answered. Wendy Crouch MD - General Info Date of Service: 08/31/17 Subjective Update: 27-year-old POD#3 status post repeat section. Patient had some significant heartburn after surgery which improved with Tums. Berrios has been removed, and she is voiding without difficulty. She is passing gas. Dizziness has improved. She is tolerating a general diet. No fever or chills. No headaches. No new symptoms over the past 24 hours. Functional Status: Reports: Pain Controlled, Tolerating Diet, Ambulating, Urinating. Denies: New Symptoms - Review of Systems General: Reports: No Symptoms HEENT: Reports: No Symptoms Pulmonary: Reports: No Symptoms Cardiovascular: Reports: No Symptoms Gastrointestinal: Reports: No Symptoms Genitourinary: Reports: No Symptoms Musculoskeletal: Reports: No Symptoms Skin: Reports: No Symptoms - Patient Data Vitals - Most Recent: Last Vital Signs Temp 36.6 C 01/11/18 12:00 Pulse 63 08/31/17 12:00 Resp 16 08/31/17 12:00 BP 135/89 08/31/17 12:00 Pulse Ox 100 08/31/17 12:00 Weight - Most Recent: 105.233 kg Med Orders - Current: Current Medications Acetaminophen (Tylenol) 650 mg PO Q6H PRN PRN Reason: mild pain or fever Calcium Carbonate/Glycine (Tums) 500 mg PO Q2H PRN PRN Reason: Heartburn Last Admin: 08/28/17 16:06 Dose: 500 mg Diphenhydramine HCl (Benadryl) 25 mg IVPUSH Q6H PRN PRN Reason: Itching or Nausea Docusate Sodium (Colace) 100 mg PO Q12H PRN PRN Reason: Constipation Last Admin: 08/31/17 10:03 Dose: 100 mg Ephedrine Sulfate (Ephedrine Sulfate) 5 mg IVPUSH SEECOMMENT PRN PRN Reason: Other Ferrous Sulfate (Ferrous Sulfate) 325 mg PO BIDMEALS YOGI Last Admin: 08/31/17 10:01 Dose: 325 mg Lactated Ringer's (Ringers, Lactated) 1,000 mls @ 125 mls/hr IV ASDIRECTED YOGI Last Admin: 08/29/17 00:07 Dose: 125 mls/hr Lactated Ringer's (Ringers, Lactated) 1,000 mls @ 125 mls/hr IV ASDIRECTED YOGI Lactated Ringer's (Ringers, Lactated) 1,000 mls @ 500 mls/hr IV .BOLUS YOGI Oxytocin/Sodium Chloride (Pitocin In Ns 30 Unit/500 Ml) 30 unit in 500 mls @ 2 mls/hr IV TITRATE YOGI; 2 MUNITS/MIN PRN Reason: Protocol Last Titration: 08/28/17 11:25 Dose: 0 mls/hr Lactated Ringer's (Ringers, Lactated) 1,000 mls @ 125 mls/hr IV ASDIRECTED YOGI Ibuprofen (Motrin) 800 mg PO Q8H PRN PRN Reason: mild pain or fever Last Admin: 08/31/17 10:02 Dose: 800 mg Methylergonovine Maleate (Methergine) 0.2 mg IM ONETIME PRN PRN Reason: Excessive Vaginal Bleeding Misoprostol (Cytotec) 800 mcg RECTAL ASDIRECTED PRN PRN Reason: Excessive bleeding Naloxone HCl (Narcan) 0.1 mg IVPUSH SEECOMMENT PRN PRN Reason: Respiratory Depression Ondansetron HCl (Zofran) 4 mg IV Q4H PRN PRN Reason: Nausea/Vomiting Last Admin: 08/28/17 17:02 Dose: 4 mg Oxycodone/Acetaminophen (Percocet 325-5 Mg) 1 tab PO Q4H PRN PRN Reason: Pain (moderate 4-6) Last Admin: 08/29/17 08:14 Dose: 1 tab Oxycodone/Acetaminophen (Percocet 325-5 Mg) 2 tab PO Q4H PRN PRN Reason: Pain (moderate 4-6) Last Admin: 08/31/17 12:27 Dose: 2 tab Prenat Multivit/[place]/Iron/Folic Ac ( Plus Iron) 1 each PO WITHBREAKFAST YOGI Last Admin: 08/31/17 10:01 Dose: 1 each Promethazine HCl (Phenergan) 12.5 mg IM ONETIME PRN PRN Reason: Nausea Simethicone (Simethicone) 80 mg PO Q4H PRN PRN Reason: Gas Last Admin: 08/31/17 10:03 Dose: 80 mg Sodium Chloride (Saline Flush) 10 ml FLUSH ASDIRECTED PRN PRN Reason: Keep Vein Open Discontinued Medications Carboprost Tromethamine (Hemabate Ds) 250 mcg IM ONETIME ONE Stop: 08/28/17 09:04 Last Admin: 08/28/17 11:41 Dose: Not Given Citric Acid/Sodium Citrate (Bicitra Solution) 30 ml PO ONETIME ONE Stop: 08/28/17 07:24 Last Admin: 08/28/17 07:41 Dose: 30 ml Dexamethasone (Dexamethasone) 8 mg IV .STK-MED ONE Stop: 08/28/17 14:16 Ephedrine Sulfate (Ephedrine Sulfate) 45 mg IV .STK-MED ONE Stop: 08/28/17 14:16 Oxytocin/Sodium Chloride (Pitocin In Ns 30 Unit/500 Ml) Confirm Administered Dose 60 unit in 1,000 mls @ as directed .ROUTE .STK-MED ONE Stop: 08/28/17 07:04 Cefazolin Sodium/Dextrose 2 gm (/ Premix) 50 mls @ 100 mls/hr IV ONETIME ONE Stop: 08/28/17 07:52 Last Admin: 08/28/17 07:45 Dose: 100 mls/hr Lactated Ringer's (Ringers, Lactated) 1,000 mls @ as directed IV .STK-MED ONE Stop: 08/28/17 14:16 Ketorolac Tromethamine (Toradol) 15 mg IVPUSH Q6H YOGI Stop: 08/29/17 02:01 Last Admin: 08/29/17 02:07 Dose: 15 mg Ketorolac Tromethamine (Toradol) 30 mg IVPUSH .STK-MED ONE Stop: 08/28/17 14:16 Morphine Sulfate (Duramorph Pf) 0.2 mg .XX .STK-MED ONE Stop: 08/28/17 14:16 Ondansetron HCl (Zofran) 4 mg IV .STK-MED ONE Stop: 08/28/17 14:16 - Exam General: Reports: Alert, Oriented HEENT: Reports: Pupils Equal Lungs: Reports: Clear to Auscultation, Normal Respiratory Effort Cardiovascular: Reports: Regular Rate, Regular Rhythm, No Murmurs GI/Abdominal Exam: Soft, Non-Tender Extremities: Pedal Edema (Trace bilaterally) Skin: Reports: Warm, Dry, Intact Wound/Incisions: Reports: Healing Well, No Drainage. Denies: Erythema *Q Meaningful Use (DIS) - VTE *Q VTE Criteria *Q: - Stroke *Q Stroke Criteria *Q: - AMI *Q AMI Criteria *Q:
[2017-08-31] MEDS ORDERED: Measles, Mumps & Rubella Vaccine 0.5 ML SDV SUBCUT ONE (15:42)
[2017-08-31] MEDS ORDERED: Oxytocin/Normal Saline 30 UNIT/500 ML BAG IV ONE (19:09)
== END 2017-08-31 19:10 | disposition home or self-care (01) | DRG 766 ==
LOC: DL.OB 05:54 → OBSVTOIN 08:18 → DL.OB 08-29 09:17 → DL.MS 08-31 09:00
PROVIDERS: ADMIT Family Medicine; ATTEND Family Medicine
PROC: 10D00Z1 Extraction of Products of Conception, Low, Open Approach (ICD-10-PCS; principal; 2017-08-28)
DX: O34.211 Maternal care for low transverse scar from previous cesarean delivery (principal); O99.02 Anemia complicating childbirth; D64.9 Anemia, unspecified; Z3A.39 39 weeks gestation of pregnancy; R12 Heartburn; Z37.0 Single live birth
CPT/HCPCS: 01961; 36415; 59025; 85027; 86850; 86900; 86901; 90471; 90707; 94010; A9270-GY; J0690; J1100; J1885; J2274; J2405; J2590; J7120

== ENCOUNTER 2022-09-01 08:51 | Inpatient (IN) | payer MEDICAID ==
[~2022-09-01 08:51] MED LIST: Sodium Chloride 0.9% 10 ML Syringe FLUSH PRN
[2022-09-01] MEDS ORDERED: Methylergonovine 0.2 MG Tab PO PRN (09:22)
[2022-09-01] MEDS ORDERED: Carboprost Tromethamine 250 MCG/1 ML Amp IM PRN (09:22)
[2022-09-01] MEDS ORDERED: Oxytocin 10 Units/1 ML SDV IM PRN (09:22)
[2022-09-01] MEDS ORDERED: Tranexamic Acid 1,000 MG in Sodium Chloride 0.9% 100 ML IV PRN (09:22)
[2022-09-01] MEDS ORDERED: Lactated Ringers 1,000 ML IV SCH (09:30)
[2022-09-01] MEDS ORDERED: Oxytocin/Normal Saline 30 UNIT/500 ML BAG IV SCH (09:30)
[2022-09-01] MEDS ORDERED: ceFAZolin 1 GM Vial ONE (11:00)
[2022-09-01] MEDS: Lactated Ringers 1,000 ML IV SCH ×4 (11:00→18:08)
[2022-09-01] MEDS ORDERED: Oxytocin/Normal Saline 30 UNIT/500 ML BAG ONE (11:00)
[2022-09-01] MEDS ORDERED: ceFAZolin 2 GM in Premix Bag 1 BAG IV ONE (12:00)
[2022-09-01] MEDS ORDERED: Methylergonovine 0.2 MG/1 ML Amp IM PRN (13:14)
[2022-09-01] MEDS ORDERED: Naloxone 2 MG/2 ML Syringe IVPUSH PRN (13:14)
[2022-09-01] MEDS ORDERED: diphenhydrAMINE 50 MG/ML SDV IVPUSH PRN (13:14)
[2022-09-01] MEDS ORDERED: Acetaminophen/oxyCODONE 325-5 MG Tab PO PRN (13:14)
[2022-09-01] MEDS ORDERED: Misoprostol 400 MCG (4 X 100 MCG TAB) RECTAL PRN (13:14)
[2022-09-01] MEDS ORDERED: ePHEDrine 50 MG/ML SDV IVPUSH PRN (13:14)
[2022-09-01] MEDS ORDERED: ePHEDrine 50 MG/ML SDV IV ONE (16:09)
[2022-09-01] MEDS ORDERED: Ondansetron 4 MG/2 ML SDV IV ONE (16:09)
[2022-09-01] MEDS ORDERED: Oxytocin 10 Units/1 ML SDV IV ONE (16:09)
[2022-09-01] MEDS ORDERED: Morphine PF 10 MG/10 ML SDV IT ONE (16:09)
[2022-09-01] MEDS ORDERED: Dexamethasone 4 MG/ML SDV IV ONE (16:09)
[2022-09-01] MEDS ORDERED: Lactated Ringers 1,000 ML IV ONE (16:09)
[2022-09-01] MEDS ORDERED: Dexmedetomidine 200 MCG/2 ML SDV IV ONE (16:09)
[2022-09-01] MEDS ORDERED: Ketorolac 30 MG/ML SDV IVPUSH ONE (16:09)
[2022-09-01] MEDS: Ketorolac 30 MG/ML SDV IVPUSH SCH (17:49)
[2022-09-01] MEDS: Simethicone 80 MG Tab.Chew PO SCH (17:49)
[2022-09-01] MEDS: Sodium Chloride 0.9% 10 ML Syringe FLUSH SCH (21:00)
[2022-09-02] MEDS: Acetaminophen 325 MG Tab PO PRN (00:18)
[2022-09-02] MEDS: Ketorolac 30 MG/ML SDV IVPUSH SCH ×2 (00:19→06:28)
[2022-09-02] MEDS: Simethicone 80 MG Tab.Chew PO SCH ×5 (01:15→21:09)
[2022-09-02] MEDS: Lactated Ringers 1,000 ML IV SCH (01:55)
[2022-09-02] MEDS: Ferrous Sulfate 325 MG Tab PO SCH (09:30)
[2022-09-02] MEDS: Prenatal Multivitamin with Calcium/Folic Acid/Iron Tab PO SCH (13:01)
[2022-09-02] MEDS: Docusate Sodium 100 MG Cap PO PRN ×2 (13:01→21:10)
[2022-09-02] MEDS: Acetaminophen/oxyCODONE 325-5 MG Tab PO PRN ×2 (13:01→21:10)
[2022-09-02] MEDS: Sodium Chloride 0.9% 10 ML Syringe FLUSH SCH (13:16)
[2022-09-02] MEDS: Ibuprofen 800 MG Tab PO PRN (15:31)
[2022-09-02] MEDS: Ondansetron 4 MG/2 ML SDV IVPUSH PRN (20:19)
[2022-09-03] MEDS: Ibuprofen 800 MG Tab PO PRN ×3 (00:51→17:34)
[2022-09-03] MEDS: Acetaminophen/oxyCODONE 325-5 MG Tab PO PRN (03:25)
[2022-09-03] MEDS: Docusate Sodium 100 MG Cap PO PRN ×2 (08:00→21:29)
[2022-09-03] MEDS: Simethicone 80 MG Tab.Chew PO SCH ×4 (08:00→21:29)
[2022-09-03] MEDS: Ondansetron 4 MG/2 ML SDV IVPUSH PRN (08:00)
[2022-09-03] MEDS: Prenatal Multivitamin with Calcium/Folic Acid/Iron Tab PO SCH (08:00)
[2022-09-03] MEDS: Ferrous Sulfate 325 MG Tab PO SCH (08:01)
[2022-09-03] MEDS: Acetaminophen 325 MG Tab PO PRN ×2 (13:27→21:30)
[2022-09-04] MEDS: Ibuprofen 800 MG Tab PO PRN (04:01)
[2022-09-04] MEDS: Prenatal Multivitamin with Calcium/Folic Acid/Iron Tab PO SCH (08:22)
[2022-09-04] MEDS: Ferrous Sulfate 325 MG Tab PO SCH (08:22)
[2022-09-04] MEDS: Simethicone 80 MG Tab.Chew PO SCH (08:22)
== END 2022-09-04 10:43 | disposition home or self-care (01) | DRG 787 ==
LOC: DL.OB 08:51 → OBSVTOIN 12:15 → DL.MS 09-02 16:16
PROVIDERS: ADMIT Family Medicine; ATTEND Family Medicine
PROC: 10D00Z1 Extraction of Products of Conception, Low, Open Approach (ICD-10-PCS; principal; 2022-09-01)
DX: O34.211 Maternal care for low transverse scar from previous cesarean delivery (principal); D62 Acute posthemorrhagic anemia; Z37.0 Single live birth; Z3A.39 39 weeks gestation of pregnancy; O99.02 Anemia complicating childbirth; O99.52 Diseases of the respiratory system complicating childbirth; J45.909 Unspecified asthma, uncomplicated; Z20.822 Contact with and (suspected) exposure to COVID-19; Z28.9 Immunization not carried out for unspecified reason
CPT/HCPCS: 01961; 36415; 59025; 85025; 85027; 86850; 86900; 86901; A9270-GY; J0690; J1100; J1885; J2270; J2405; J2590; J7120; U0002

== ENCOUNTER 2022-09-11 18:44 | Observation (INO) | payer MEDICAID ==
[2022-09-11] MEDS ORDERED: Sodium Chloride 0.9% 10 ML Syringe FLUSH PRN (19:20)
[2022-09-11 19:58] LABS: ANION GAP 12.9 mEq/L (7-13)
[2022-09-11] MEDS ORDERED: Sodium Chloride 0.9% 1,000 ML IV ONE (21:02)
[2022-09-11] MEDS ORDERED: fentaNYL 100 MCG/2 ML SDV IVPUSH ONE (22:17)
[2022-09-11] MEDS ORDERED: Acetaminophen 325 MG Tab PO PRN (23:28)
[2022-09-11] MEDS ORDERED: Ibuprofen 800 MG Tab PO ONE (23:30)
[2022-09-11] MEDS ORDERED: Acetaminophen/HYDROcodone 325-5 MG Tab PO PRN (23:30)
[2022-09-11] MEDS ORDERED: Ondansetron 4 MG Tab.DIS PO PRN (23:31)
[2022-09-12] MEDS: Methylergonovine 0.2 MG/1 ML Amp IM SCH ×5 (01:24→09:23)
[2022-09-12] MEDS ORDERED: Ferrous Sulfate 325 MG Tab PO SCH (08:00)
== END 2022-09-12 10:35 | disposition home or self-care (01) ==
LOC: DL.ED 18:44 → DL.MS 23:28 → UNDOADMOB 09-12 00:02 → INTOOBSV 09-12 00:02
PROVIDERS: ADMIT Family Medicine; ATTEND Family Medicine
DX: O72.2 Delayed and secondary postpartum hemorrhage (principal); D62 Acute posthemorrhagic anemia; R93.89 Abnormal findings on diagnostic imaging of other specified body structures; Z79.899 Other long term (current) drug therapy; Z86.16 Personal history of COVID-19
CPT/HCPCS: 36415; 76856; 80053; 84702; 85025; 96361; 96372; 96374; 99284; 99285-25; A9270-GY; G0378; J2210; J3010; J3490; J7030

== ENCOUNTER 2022-09-12 14:22 | Emergency (ER) | payer MEDICAID ==
[2022-09-12] MEDS ORDERED: Morphine 4 MG/ML Syringe IVPUSH ONE (14:49)
[2022-09-12] MEDS ORDERED: Ondansetron 4 MG/2 ML SDV IVPUSH ONE (14:49)
[2022-09-12] MEDS ORDERED: Sodium Chloride 0.9% 1,000 ML IV ONE (14:54)
[2022-09-12] MEDS ORDERED: Morphine 4 MG/ML Syringe IM ONE (15:28)
[2022-09-12 15:31] LABS: ANION GAP 13.8 mEq/L (7-13)
[2022-09-12] MEDS ORDERED: HYDROmorphone 0.5 MG/0.5 ML Syringe IVPUSH ONE (15:55)
== END 2022-09-12 16:21 ==
LOC: DL.ED 14:22
DX: O72.2 Delayed and secondary postpartum hemorrhage (principal); Z86.16 Personal history of COVID-19
CPT/HCPCS: 36415; 76856; 80053; 85025; 86850; 86900; 86901; 96361; 96372; 96374; 96375; 99284; 99285; J1170; J2270; J2405; J7030

== ENCOUNTER 2025-02-16 19:11 | Inpatient (IN) | payer MEDICAID ==
[2025-02-16 19:42] LABS: PLATELET COUNT,PLT 175.0 10^3/uL (150-450); RED BLOOD CELL COUNT 3.81 10^6/uL (4.2-5.4); WHITE BLOOD CELL COUNT,WBC 9.7 10^3/uL (5.0-10.0)
[2025-02-16] MEDS: Lactated Ringers 1,000 ML IV SCH (19:50)
[2025-02-16] MEDS ORDERED: Carboprost Tromethamine 250 MCG/1 ML Amp IM PRN (20:02)
[2025-02-16] MEDS ORDERED: Sodium Chloride 0.9% 10 ML Syringe FLUSH PRN (20:02)
[2025-02-16] MEDS ORDERED: Oxytocin 10 Units/1 ML SDV IM PRN (20:02)
[2025-02-16 20:14] LABS: ALANINE AMINOTRANSFERASE,ALT 18.0 U/L (14-59); ASPARTATE AMNIOTRANSFERASE,AST 17.0 U/L (15-37); BLOOD UREA NITROGEN,BUN 8.0 mg/dL (7-18); CREATININE 0.87 mg/dL (0.55-1.02); EST CRCL DRUG DOSING (CG) 90.18 mL/min; LACTATE DEHYDROGENASE,LDH 192.0 U/L (81-234)
[2025-02-16] MEDS ORDERED: dexmedeTOMIDine HCl 200 MCG/2 ML SDV ONE (20:14)
[2025-02-16] MEDS ORDERED: Morphine PF 10 MG/10 ML SDV ONE (20:14)
[2025-02-16] MEDS ORDERED: Ondansetron 4 MG/2 ML SDV ONE (20:15)
[2025-02-16] MEDS ORDERED: Ketorolac 30 MG/ML SDV ONE (20:15)
[2025-02-16] MEDS ORDERED: Lactated Ringers 1,000 ML IV SCH ×2 (20:15)
[2025-02-16 20:20] LABS: ESTIMATED GFR 89.0 mL/min (>=60)
[2025-02-16 21:00] LABS: APPEARANCE,URINE SLIGHTLY CLOUDY (CLEAR); GLUCOSE,URINE NEGATIVE (NEGATIVE); OCCULT BLOOD,URINE TRACE-INTACT (NEGATIVE)
[2025-02-16 21:13] LABS: CREATININE,URINE RAND 97.68 mg/dL (No establ ref range); PROTEIN CREATININE RATIO,URINE 98.3 mg/g (<150.0); PROTEIN,URINE RANDOM 9.6 mg/dL (0.0-11.9)
[2025-02-16] MEDS ORDERED: diphenhydrAMINE 50 MG/ML SDV IVPUSH PRN (22:00)
[2025-02-16] MEDS ORDERED: Acetaminophen/oxyCODONE 325-5 MG Tab PO PRN (22:00)
[2025-02-16] MEDS ORDERED: ePHEDrine 50 MG/ML SDV IVPUSH PRN (22:00)
[2025-02-16] MEDS: Oxytocin/Lactated Ringers 30 UNIT/500 ML BAG IV SCH (22:30)
[2025-02-16] MEDS: Sodium Chloride 0.9% 10 ML Syringe FLUSH SCH (23:14)
[2025-02-16] MEDS: Ondansetron 4 MG/2 ML SDV IVPUSH PRN (23:51)
[2025-02-17] MEDS: Ketorolac 30 MG/ML SDV IVPUSH SCH ×3 (03:09→03:52)
[2025-02-17 07:26] LABS: PLATELET COUNT,PLT 143.0 10^3/uL (150-450); RED BLOOD CELL COUNT 3.1 10^6/uL (4.2-5.4); WHITE BLOOD CELL COUNT,WBC 10.5 10^3/uL (5.0-10.0)
[2025-02-17] MEDS: Prenatal Multivitamin with Calcium/Folic Acid/Iron Tab PO SCH (08:56)
[2025-02-17] MEDS ORDERED: dexmedeTOMIDine HCl 200 MCG/2 ML SDV ONE (09:32)
[2025-02-17] MEDS ORDERED: Ketorolac 30 MG/ML SDV ONE (09:32)
[2025-02-17] MEDS ORDERED: Glycopyrrolate 0.2 MG/ML 2 ML SDV ONE ×2 (09:32)
[2025-02-17] MEDS ORDERED: ePHEDrine 50 MG/ML SDV ONE (09:32)
[2025-02-17 13:30] LABS: ALANINE AMINOTRANSFERASE,ALT 18.0 U/L (14-59); ASPARTATE AMNIOTRANSFERASE,AST 24.0 U/L (15-37); BLOOD UREA NITROGEN,BUN 9.0 mg/dL (7-18); CREATININE 0.9 mg/dL (0.55-1.02); EST CRCL DRUG DOSING (CG) 87.17 mL/min; ESTIMATED GFR 85.0 mL/min (>=60); LACTATE DEHYDROGENASE,LDH 206.0 U/L (81-234)
[2025-02-17 14:23] LABS: CREATININE,URINE RAND 151.95 mg/dL (No establ ref range); PROTEIN CREATININE RATIO,URINE 234.3 mg/g (<150.0); PROTEIN,URINE RANDOM 35.6 mg/dL (0.0-11.9)
[2025-02-17] MEDS: Acetaminophen/oxyCODONE 325-5 MG Tab PO PRN (16:56)
== END 2025-02-18 20:20 | disposition home or self-care (01) | DRG 786 ==
LOC: DL.OBCHECK 19:11 → DL.OB 19:24 → OBSVTOIN 21:07 → DL.OB 21:07
PROVIDERS: ADMIT Family Medicine; ATTEND Family Medicine
PROC: 10D00Z1 Extraction of Products of Conception, Low, Open Approach (ICD-10-PCS; principal; 2025-02-16 20:30)
DX: O34.211 Maternal care for low transverse scar from previous cesarean delivery (principal); O45.93 Premature separation of placenta, unspecified, third trimester; Z3A.37 37 weeks gestation of pregnancy; Z37.0 Single live birth; O13.4 Gestational [pregnancy-induced] hypertension without significant proteinuria, complicating childbirth; O99.02 Anemia complicating childbirth; Z72.0 Tobacco use; Z79.899 Other long term (current) drug therapy
CPT/HCPCS: 36415; 81003; 82565; 82570; 83615; 84112; 84156; 84450; 84460; 84520; 84550; 85027; 86850; 86900; 86901; 94010; A9270-GY; J0690; J1885; J2405; J2590; J7120